=== PATIENT | female | born 1950 | race Caucasian/White ===

== ENCOUNTER 2017-08-31 09:47 | Outpatient (CLI) | payer MEDICARE, OTHER ==
[2016-08-19 12:39] VITALS: BP 144/85
[2017-08-31 10:11] LABS: BASOPHILS % 0.4 (0.0-1.5); EOSINOPHILS % 1.9 % (0.0-6.8); MEAN CORPUSCULAR HEMOGLOBIN 29.3 pg (28.0-34.0); MEAN CORPUSCULAR VOLUME 83.1 fl (80.0-100.0); MONOCYTES % 4.4 % (0.0-11.0); NEUTROPHILS # 2.8 # k/uL (1.4-7.7)
[2017-08-31 10:31] LABS: eGFR (African) > 60; eGFR (Non-African) > 60
== END 2017-08-31 10:00 ==
LOC: LAB 09:47
PROVIDERS: ATTEND Family Medicine
DX: I10 Essential (primary) hypertension (principal)
CPT/HCPCS: 36415; 80053; 85025

== ENCOUNTER 2017-09-22 17:35 | Emergency (ER) | payer MEDICARE, OTHER ==
[2017-09-22] MEDS ORDERED: KETOROLAC TROMETHAMINE 60 MG/2 ML VIAL ONE (18:00)
[2017-09-22] MEDS ORDERED: KETOROLAC TROMETHAMINE 60 MG/2 ML VIAL IM ONE (18:00)
[2017-09-22] MEDS ORDERED: ORPHENADRINE CITRATE 60 MG/2ML IM ONE (18:01)
[2017-09-22] MEDS ORDERED: ORPHENADRINE CITRATE 60 MG/2ML ONE (18:01)
--- NOTE | 2017-09-22 18:04 | ED Physician Documentation ---
Low Back Pain - HISTORIAN Historian: patient, child - HPI Stated Complaint: low back pain Chief Complaint: Low Back Pain/ Injury Additional Information: onset low back rated 8-10. onset pain about 1w ago now sig worse and ext mid lateral thigh w/pain sig progressive./ pt too excedrin etc w/o help. has chronic intermittent low back pain w djd disc ds and spurring History: history of chronic pain: Duration: worse (saw yesterday rec the excedrin but no help. pt also has sy uti w/freq burning) Recent Injury: No Context: denies: fall, near-fall, trauma Severity: moderate, severe Quality: burning, sharp, similar- prior back pain (only worse than usual) Associated Symptoms: problems urinating (burning freq). denies: fever, incontinence, nausea, vomiting Worsened By:: movement to LT flexion, cough, deep breaths, other (most movements ) - ROS CONST: denies: no problems CVS/RESP: none EYES/ENT: none MS/SKIN/LYMPH: none Neuro/Psych: none GI/: denies: abdominal pain - PAST HX Past History: arthritis, back injury, back pain, sciatica, intervert. disc disease, other (htn cellulitis djd dep edema) Surgeries/Procedures: cholecystectomy, hysterectomy, BTL Allergies/Adverse Reactions: Allergies Allergy/AdvReac Type Severity Reaction Status Date / Time Penicillins Allergy Unknown Verified 09/22/17 17:52 Home Medications: Ambulatory Orders Medication Instructions Recorded Aspirin/Acetaminophen/Caffeine 2 each PO Q6 PRN 09/22/17 [Excedrin Migraine Geltabs] - SOCIAL HX Smoking History: non-smoker Alcohol Use: none Drug Use: none - FAMILY HX Family History: no significant history - VITAL SIGNS Vital Signs: Vital Signs Temp Pulse Resp BP Pulse Ox 98.1 F 67 20 190/84 96 09/22/17 17:53 09/22/17 17:53 09/22/17 17:53 09/22/17 17:53 09/22/17 17:53 - REVIEWED ASSESSMENTS Nursing Assessment Reviewed: Yes Vitals Reviewed: Yes ED Results Lab/Radiology - Radiology Radiology Impressions: NO FRACTURE OR SIG NEW FINDING FROM HX - Orders Orders: ED Orders Category Date Time Status LUMBAR SPINE XR 2 OR 3 VIEWS [L SPINE 2 OR 3 VIEWS] [ Exams 09/22/17 Completed RAD] Stat Ketorolac Tromethamine [Toradol] Med 09/22/17 18:00 Discontinued 60 mg .ROUTE .STK-MED ONE Ketorolac Tromethamine [Toradol] Med 09/22/17 18:00 Discontinued 60 mg IM NOW ONE Orphenadrine Citrate [Norflex] Med 09/22/17 18:01 Discontinued 60 mg .ROUTE .STK-MED ONE Orphenadrine Citrate [Norflex] Med 09/22/17 18:01 Discontinued 60 mg IM NOW ONE Low Back Pain/Injury - Physical Exam General Appearance: moderate distress EENT: eye inspection normal Neck: non-tender, painless ROM Resp/CVS: chest non-tender, breath sounds nml, heart sounds nml, no resp. distress, lungs clear, reg. rate & rhythm Abdomen: non-tender Back: painless ROM Neuro/Psych: oriented x3, motor nml, sensation nml Skin: warm/dry, normal color. No: cyanosis, diaphoresis Extremities: edema, tenderness (lt t high) Discharge Clincal Impression: Sciatica, ACUTE SCIATICA W/ EXAB CHRONIC BACK PAIN Referrals: Nicola Acharya MD [Primary Care Provider] - 2 Days Disposition: 01 HOME, SELF-CARE Decision to Admit: NO Decision Time: 19:22
--- NOTE | 2017-09-22 18:57 | Diagnostic Imaging Report ---
ROSE MARTINEZ [facility] [address] [facility].[address] [address] Report Submission Date: Sep 22, 2017 6:47:53 PM LINE RUNNER Patient Study Name: ROSE SEGUNDO Date: Sep 22, 2017 6:30:20 PM LINE RUNNER Modality Type: CR Gender: F Description: SPINE : 50 Institution: [facility] Physician: ROSE MARTINEZ Examination: Plain film lumbar spine History: Back discomfort Findings: 4 views of the lumbar spine demonstrate normal height. No anterior compression. Osteophyte formation and disc space narrowing. Slight curvature to the left. No soft tissue abnormalities. Impression: Degenerative changes. No compression deformity. Electronically signed on Sep 22, 2017 6:47:53 PM LINE RUNNER by: Wiliam PÉREZ
[2017-09-22 19:39] VITALS: BP 149/75
== END 2017-09-22 19:20 | disposition home or self-care (01) ==
LOC: ED 17:35
DX: M54.30 Sciatica, unspecified side (principal); M54.9 Dorsalgia, unspecified
CPT/HCPCS: 72100; J1885; J2360; 96372; 99283

== ENCOUNTER 2017-09-28 16:11 | Emergency (ER) | payer MEDICARE, OTHER ==
--- NOTE | 2017-09-28 16:34 | ED Physician Documentation ---
General Adult - HISTORIAN Historian: patient - HPI Stated Complaint: left flank pain Chief Complaint: Flank Pain Onset: other (2 weeks all together ) Timing: still present, worse Severity: moderate Further Comments: yes (she states that last weekend she had the pain on her left hip and she presented to the ER shes states she was told it was siatica and she was treated with three meds. She reports early in the week she had increase in pain and she did see Dr Acharya who changed her meds and she sates the pain is only increasing. Sharp and cramping sensation on her left lower abdomen and left flank and down left buttock . No loss of control of bowel or bladder) Last known Well Code/Unknown Code: Unknown - ROS CONST: no problems GI/: abdominal pain. denies: problems urinating, vomiting, nausea, diarrhea MS/SKIN/LYMPH: none NEURO/PSYCH: denies: headache, fainting, dizziness - PAST HX Past History: other Other History: other Immunizations: referred to PCP - SOCIAL HX Smoking History: non-smoker Alcohol Use: none Drug Use: none - FAMILY HX Family History: Yes - VITAL SIGNS Vital Signs: Vital Signs Temp Pulse Resp BP Pulse Ox 97.4 F L 71 20 199/100 97 09/28/17 16:11 09/28/17 16:11 09/28/17 16:11 09/28/17 16:11 09/28/17 16:11 - REVIEWED ASSESSMENTS Nursing Assessment Reviewed: Yes Vitals Reviewed: Yes <Marcia Mcmanus - Last Filed: 09/28/17 18:26> - VITAL SIGNS Vital Signs: Vital Signs Temp Pulse Resp BP Pulse Ox 97.4 F L 71 20 199/100 97 09/28/17 16:11 09/28/17 16:11 09/28/17 16:11 09/28/17 16:11 09/28/17 16:11 <JAYDEN ATKINS - Last Filed: 09/28/17 19:12> - PAST HX Allergies/Adverse Reactions: Allergies Allergy/AdvReac Type Severity Reaction Status Date / Time Penicillins Allergy Unknown Verified 09/28/17 16:29 Home Medications: Ambulatory Orders Medication Instructions Recorded predniSONE [Deltasone] 20 mg PO BID 09/28/17 Progress - Progress Progress: Patient denies any pain at discharge. VS Stable. <JAYDEN ATKINS - Last Filed: 09/28/17 19:12> ED Results Lab/Radiology - Lab Results Lab Results: Lab Results 09/28/17 09/28/17 17:33 17:33 WBC 8.40 K/ul K/ul (4.00-12.00) RBC 5.25 M/ul H M/ul (3.90-5.20) Hgb 15.4 g/dL g/dL (12.0-16.0) Hct 43.6 % % (34.5-46.5) MCV 83.0 fl fl (80.0-100.0) MCH 29.4 pg pg (28.0-34.0) MCHC 35.4 g/dL g/dL (30.0-36.0) RDW 13.4 % % (11.3-14.3) Plt Count 263 K/mm3 K/mm3 (130-400) Neut % (Auto) 80.5 % H % (39.0-79.0) Lymph % (Auto) 13.3 % L % (16.0-50.0) [place] % (Auto) 4.4 % % (0.0-11.0) Eos % (Auto) 0.8 % % (0.0-6.8) Baso % (Auto) 0.1 (0.0-1.5) Neut # (Auto) 6.8 # k/uL # k/uL (1.4-7.7) Lymph # (Auto) 1.1 # k/uL # k/uL (0.6-4.0) [place] # (Auto) 0.4 # k/uL # k/uL (0.0-0.9) Eos # (Auto) 0.1 # k/uL # k/uL (0.0-0.6) Baso # (Auto) 0.0 # k/uL # k/uL (0.0-0.5) Reactive Lymphs % 0.9 % % (0.0-5.0) Reactive Lymphs # 0.1 # k/uL # k/uL (0.0-0.8) Sodium 137 mmol/L mmol/L (136-145) Potassium 3.2 mmol/L L mmol/L (3.5-5.1) Chloride 102 mmol/L mmol/L (98-107) Carbon Dioxide 25 mmol/L mmol/L (22-30) BUN 22 mg/dL H mg/dL (7-17) Creatinine 0.70 mg/dL mg/dL (0.52-1.04) Estimated Creat Clear 161 Est GFR ( Amer) > 60 (60 - ) Est GFR (Non-Af Amer) > 60 (60 - ) Glucose 134 mg/dL H mg/dL (74-106) Calcium 9.7 mg/dL mg/dL (8.4-10.2) Total Bilirubin 1.4 mg/dL H mg/dL (0.2-1.3) AST 28 U/L U/L (15-46) ALT 41 U/L U/L (13-69) Alkaline Phosphatase 93 U/L U/L (38-126) Total Protein 7.7 g/dL g/dL (6.3-8.2) Albumin 4.0 g/dL g/dL (3.5-5.0) - Orders Orders: ED Orders Category Date Time Status Place IV Lock 1T Care 09/28/17 16:57 Active CBC/PLATELET/DIFF Routine Lab 09/28/17 17:33 Completed CMP [CMP] Routine Lab 09/28/17 17:33 Completed UA W/MICRO IF INDICATED Routine Lab 09/28/17 16:50 Ordered 0.9 % Sodium Chloride [Normal Saline] 1,000 ml Med 09/28/17 16:58 Discontinued IV Q1H Butorphanol Tartrate [Stadol] Med 09/28/17 17:11 Discontinued 2 mg .ROUTE .STK-MED ONE Butorphanol Tartrate [Stadol] Med 09/28/17 17:09 Discontinued 2 mg IV NOW ONE Potassium Chloride [Klor-Con M20] Med 09/28/17 18:08 Discontinued 20 meq PO NOW ONE <WILBERTJAYDEN C - Last Filed: 09/28/17 19:12> General Adult Physical Exam - PHYSICAL EXAM GENERAL APPEARANCE: mild distress EENT: eye inspection normal NECK: normal inspection RESPIRATORY: no resp distress, chest non-tender, breath sounds normal CVS: reg rate & rhythm, heart sounds normal, equal pulses, no murmur ABDOMEN: soft, no organomegaly, normal bowel sounds. No: rebound BACK: normal inspection, no CVA tenderness SKIN: warm/dry, normal color EXTREMITIES: non-tender, normal range of motion, no evidence of injury, no edema , other (mild pain to palpation left lateral lower back . Normal ROM of left hip and leg ) NEURO: oriented X3, CN's nml as tested, motor nml <Marcia Mcmanus - Last Filed: 09/28/17 18:26> Discharge Decision to Admit: NO Date of Decison to Admit: 09/28/17 Decision Time: 18:27 <Marcia Mcmanus - Last Filed: 09/28/17 18:26> <JAYDEN ATKINS - Last Filed: 09/28/17 19:12> Clincal Impression: Acute back pain with sciatica Qualifiers: Laterality: unspecified laterality Qualified Code(s): M54.40 - Lumbago with sciatica, unspecified side Referrals: Nicola Acharya MD [Primary Care Provider] - 2 Days Condition: Stable Disposition: 01 HOME, SELF-CARE
[2017-09-28] MEDS ORDERED: 0.9 % SODIUM CHLORIDE 1,000 ML IV ONE (16:58)
[2017-09-28] MEDS ORDERED: BUTORPHANOL TARTRATE 2 MG/ML VIAL IV ONE (17:09)
[2017-09-28] MEDS ORDERED: BUTORPHANOL TARTRATE 2 MG/ML VIAL ONE (17:11)
[2017-09-28 17:39] LABS: BASOPHILS % 0.1 (0.0-1.5); EOSINOPHILS % 0.8 % (0.0-6.8); MEAN CORPUSCULAR HEMOGLOBIN 29.4 pg (28.0-34.0); MONOCYTES % 4.4 % (0.0-11.0); NEUTROPHILS # 6.8 # k/uL (1.4-7.7)
[2017-09-28 17:56] LABS: eGFR (African) > 60; eGFR (Non-African) > 60
[2017-09-28] MEDS ORDERED: POTASSIUM CHLORIDE 20 MEQ TABLET.ER PO ONE (18:08)
[2017-09-28 21:53] VITALS: BP 161/82
== END 2017-09-28 19:03 | disposition home or self-care (01) ==
LOC: ED 16:11
DX: M54.40 Lumbago with sciatica, unspecified side (principal)
CPT/HCPCS: 80053; 85025; A9270; J0595; J7030; 96361; 96374; 99283; S1016

== ENCOUNTER 2017-10-01 10:30 | Emergency (ER) | payer MEDICARE, OTHER ==
[2017-10-01] MEDS ORDERED: KETOROLAC TROMETHAMINE 60 MG/2 ML VIAL IM ONE ×2 (11:20→11:22)
--- NOTE | 2017-10-01 11:41 | ED Physician Documentation ---
Low Back Pain - HISTORIAN Historian: patient, friend - [facility] Stated Complaint: back pain Chief Complaint: Low Back Pain/ Injury Additional Information: pt here 6 days ago rec norflex pred ultram-helped - later saw DR VILLASEÑOR rec medws=no help - History: history of chronic pain:, back pain Onset: days ago (3-4 WEEKS INTERMITTENT) Duration: continues in ED Recent Injury: No Severity: moderate Quality: burning, dull, other (RADIATES LT BUTTOCKS AND LT THIGH TO KNEE) Associated Symptoms: denies: fever, chills Worsened By:: movement to RT flexion, movement to LT flexion - ROS CONST: no problems CVS/RESP: denies: chest pain, shortness of breath EYES/ENT: denies: problems with vision, sore throat MS/SKIN/LYMPH: none Neuro/Psych: none - PAST HX Past History: arthritis, back pain Surgeries/Procedures: cholecystectomy Allergies/Adverse Reactions: Allergies Allergy/AdvReac Type Severity Reaction Status Date / Time Penicillins Allergy Unknown Verified 10/01/17 11:14 Home Medications: Ambulatory Orders Medication Instructions Recorded predniSONE [Deltasone] 20 mg PO BID 09/28/17 Orphenadrine Citrate [Norflex] 100 mg PO BID #30 tab 10/01/17 Prednisone 10 mg PO TID #27 tablet 10/01/17 - SOCIAL HX Smoking History: non-smoker Alcohol Use: none Drug Use: none - FAMILY HX Family History: no significant history - VITAL SIGNS Vital Signs: Vital Signs Temp Pulse Resp BP Pulse Ox 98.0 F 109 H 16 109/79 95 10/01/17 10:56 10/01/17 10:56 10/01/17 10:56 10/01/17 10:56 10/01/17 10:56 - REVIEWED ASSESSMENTS Nursing Assessment Reviewed: Yes Vitals Reviewed: Yes ED Results Lab/Radiology - Orders Orders: ED Orders Category Date Time Status CT L-SPINE W/O CONTRAST Stat Exams 10/01/[address] LUMBAR SPINE W/O [CT L-SPINE W/O CONTRAST] Stat Exams 10/01/17 Ordered Ketorolac Tromethamine [Toradol] Med 10/01/17 11:20 Discontinued 60 mg IM NOW ONE Ketorolac Tromethamine [Toradol] Med 10/01/17 11:22 Discontinued 60 mg IM NOW ONE Low Back Pain/Injury - Physical Exam General Appearance: moderate distress EENT: eye inspection normal Neck: non-tender, painless ROM, trachea midline, vertebral point-tendernes (LOW BACK AND POS SLR BILAT BOTH RAD TO LT HIP BACK LEG) Resp/CVS: chest non-tender, breath sounds nml, heart sounds nml, lungs clear, reg. rate & rhythm Abdomen: non-tender Back: muscle spasm Straight Leg Raising: Positive Left, Positive Right Neuro/Psych: oriented x3, motor nml, sensation nml, mood/affect nml Skin: warm/dry, normal color. No: cyanosis, diaphoresis, jaundice Extremities: non-tender, normal range of motion Discharge Clincal Impression: ACUTE EXABERATION CHRONIC LOW BACK PAIN, Sciatica, SPINAL STENOSIS Prescriptions: Orphenadrine Citrate [Norflex] 100 mg PO BID #30 tab Prednisone 10 mg PO TID #27 tablet Referrals: Nicola Villaseñor MD [Primary Care Provider] - 2 Days Comments: see DR GUZMAN soon for f/u care Condition: Fair Disposition: 01 HOME, SELF-CARE Decision to Admit: NO Decision Time: 12:56
[2017-10-01 13:04] VITALS: BP 112/80
--- NOTE | 2017-10-01 13:58 | Diagnostic Imaging Report ---
ROSE MARTINEZ [facility] [address] [facility] [address] [place], [place]. [address] Report Submission Date: Oct 01, 2017 12:17:41 PM FOOD PHOTOGRAPHER Patient Study Name: ROSE SEGUNDO Date: Oct 01, 2017 11:30:49 AM FOOD PHOTOGRAPHER Modality Type: CT\SR Gender: F Description: CT L-SPINE W/O CONTRAS : 50 Institution: [facility] Physician: ROSE MARTINEZ Examination: CT lumbar spine History: Chronic low back discomfort. Comparison exams: Plain film dated CT September 2017. Technique: CT lumbar spine axial imaging with sagittal and coronal reconstruction Findings: Sagittal reconstruction demonstrates normal height and alignment the lumbar vertebral bodies. No anterior compression deformity. Anterior and lateral osteophytes. Disc space narrowing L3/L4 and L4/L5. Coronal reconstruction does not demonstrate locked or perched facets. Axial imaging obtained from T12 through the sacrum Lamina and pedicles are intact. No ossific density within the central canal. Scattered facet degenerative changes. Narrowing of the central canal and neural foramen at L3/L4, L4/L5 and L5/S1. No prevertebral soft tissue abnormality. Impression: Lumbar degenerative changes: most pronounced from L3/L4 through L5/ S1 with presumed central canal and neural foraminal nerve/cord stenosis. No evidence for vertebral body compression fracture. If possible, consider obtaining MRI lumbar spine to better evaluate degree of cord and nerve impingement. Electronically signed on Oct 01, 2017 12:17:41 PM FOOD PHOTOGRAPHER by: Wiliam PÉREZ
== END 2017-10-01 13:00 | disposition home or self-care (01) ==
LOC: ED 10:30
DX: M54.40 Lumbago with sciatica, unspecified side (principal); M48.00 Spinal stenosis, site unspecified
CPT/HCPCS: 72131; J1885; 96372; 99283

== ENCOUNTER 2018-03-28 08:45 | Outpatient (CLI) | payer MEDICARE, OTHER ==
[2018-03-28 09:12] LABS: BASOPHILS % 0.4 (0.0-1.5); EOSINOPHILS % 2.1 % (0.0-6.8); MEAN CORPUSCULAR HEMOGLOBIN 27.9 pg (28.0-34.0); MEAN CORPUSCULAR VOLUME 83.6 fl (80.0-100.0); MONOCYTES % 4.3 % (0.0-11.0); NEUTROPHILS # 2.4 # k/uL (1.4-7.7)
[2018-03-28 09:32] LABS: eGFR (African) > 60; eGFR (Non-African) > 60
== END 2018-03-28 12:15 ==
LOC: LAB 08:45
PROVIDERS: ATTEND Family Medicine
DX: I10 Essential (primary) hypertension (principal); E78.00 Pure hypercholesterolemia, unspecified
CPT/HCPCS: 36415; 80053; 80061; 85025

== ENCOUNTER 2018-11-21 10:35 | Emergency (ER) | payer MEDICARE, OTHER ==
--- NOTE | 2018-11-21 10:41 | ED Physician Documentation ---
General Adult - HISTORIAN Historian: patient - HPI Stated Complaint: mid back through chest x 3 days Chief Complaint: Upper Back Injury/ Pain Onset: days ago (3) Timing: still present Severity: moderate Further Comments: yes (She reports pain in mid to right back that travels through her chest x 3 days. "I fall a lot this is not new but I am not sure I h urt any thing" Her pain is 6/10. She has not tried any OTC meds for pain. She has no change with positions. Denies any nausea or vomiting no radiation of pain. She has not taken her b/p med at this time. She has a history of back pain in the past.) Last known Well Code/Unknown Code: Unknown - ROS CONST: no problems CVS/RESP: chest pain. denies: shortness of breath, cough GI/: denies: vomiting, nausea, diarrhea MS/SKIN/LYMPH: none NEURO/PSYCH: denies: headache, fainting, dizziness - PAST HX Past History: hypertension Other History: none Immunizations: UTD Allergies/Adverse Reactions: Allergies Allergy/AdvReac Type Severity Reaction Status Date / Time Penicillins Allergy Unknown Verified 11/21/18 11:10 - SOCIAL HX Smoking History: non-smoker Alcohol Use: none Drug Use: none - FAMILY HX Family History: No - VITAL SIGNS Vital Signs: Vital Signs Temp Pulse Resp BP Pulse Ox 112/80 10/01/17 13:02 - REVIEWED ASSESSMENTS Nursing Assessment Reviewed: Yes Vitals Reviewed: Yes Progress - Progress Progress: 1200: results and plan with current findings discussed she is aware DG ED Results Lab/Radiology - Radiology Radiology Impressions: Examination: PA and lateral chest. History: Evaluate lung laureano. Comparison exam: None provided. Findings: PA and lateral views of the chest demonstrates a normal cardiac and mediastinal silhouette. Mildly tortuous aorta. Chronic interstitial changes. No focal infiltrate. No blunting of the costophrenic margins. Osseous structures are appropriate for age. Impression: No acute pulmonary process. Electronically signed on Nov 21, 2018 12:03:55 PM LAWN CARETAKER by: Wiliam Fierro Examination: Plain film thoracic spine History: T-SPINE, MID BACK PAIN X2 DAYS, NO KNOWN INJURY Findings: 3 views of the thoracic spine demonstrate normal height. No anterior compression. Scattered degenerative spurring. No soft tissue abnormalities. Impression: Degenerative spurring. No acute osseous abnormality. Electronically signed on Nov 21, 2018 12:05:00 PM LAWN CARETAKER by: Wiliam Fierro General Adult Physical Exam - PHYSICAL EXAM GENERAL APPEARANCE: no distress EENT: eye inspection normal, no signs of dehydration NECK: normal inspection RESPIRATORY: no resp distress, chest non-tender, breath sounds normal CVS: reg rate & rhythm, heart sounds normal, equal pulses, no murmur ABDOMEN: soft, normal bowel sounds, no distension, non-tender BACK: normal inspection, other (mild tenderness with palpation mid t spine. No obvious injury signs ) SKIN: warm/dry, normal color EXTREMITIES: non-tender, normal range of motion, no evidence of injury, no edema NEURO: oriented X3 Discharge Clincal Impression: Back pain Qualifiers: Back pain location: thoracic back pain Chronicity: unspecified Back pain laterality: right Qualified Code(s): M54.6 - Pain in thoracic spine Referrals: Nicola Acharya MD [Primary Care Provider] - 2 Days Comments: 1. Continue with OTC meds as needed for pain 2. TAKE YOUR B/P med 3. Stretch back 4. Ice or heat as needed for pain 5. Keep appt with PCP Sunday 6. Return to ER for any concerns Condition: Stable Disposition: 01 HOME, SELF-CARE Decision to Admit: NO Date of Decison to Admit: 11/21/18 Decision Time: 12:10
[2018-11-21] MEDS ORDERED: ASPIRIN 81 MG CHEW TAB ONE (10:50)
[2018-11-21] MEDS ORDERED: ASPIRIN 81 MG CHEW TAB PO ONE (11:01)
[2018-11-21 11:25] LABS: BASOPHILS % 0.3 (0.0-1.5); EOSINOPHILS % 1.6 % (0.0-6.8); MEAN CORPUSCULAR HEMOGLOBIN 28.4 pg (28.0-34.0); MONOCYTES % 6.5 % (0.0-11.0); NEUTROPHILS # 2.7 # k/uL (1.4-7.7)
[2018-11-21 11:32] LABS: eGFR (Non-African) > 60
[2018-11-21] MEDS ORDERED: KETOROLAC TROMETHAMINE 30 MG/1ML VIAL ONE (11:56)
[2018-11-21] MEDS ORDERED: KETOROLAC TROMETHAMINE 30 MG/1ML VIAL IVP ONE (11:56)
[2018-11-21 12:25] VITALS: BP 176/98
--- NOTE | 2018-11-21 23:00 | Diagnostic Imaging Report ---
DENNIS SANTIAGO [facility] [address] [facility] [address] [place], [place]. [address] Report Submission Date: Nov 21, 2018 12:03:55 PM SUSTAIN ENGINEER Patient Study Name: ROSE SEGUNDO Date: Nov 21, 2018 11:10:05 AM SUSTAIN ENGINEER Modality Type: DX Gender: F Description: CHEST : 50 Institution: [facility] Physician: DENNIS SANTIAGO Examination: PA and lateral chest. History: Evaluate lung laureano. Comparison exam: None provided. Findings: PA and lateral views of the chest demonstrates a normal cardiac and mediastinal silhouette. Mildly tortuous aorta. Chronic interstitial changes. No focal infiltrate. No blunting of the costophrenic margins. Osseous structures are appropriate for age. Impression: No acute pulmonary process. Electronically signed on Nov 21, 2018 12:03:55 PM SUSTAIN ENGINEER by: Wiliam PÉREZ
--- NOTE | 2018-11-21 23:00 | Diagnostic Imaging Report ---
DENNIS SANTIAGO [facility] [address] [facility] [address] [address] Report Submission Date: Nov 21, 2018 12:05:00 PM PATIENT RESOURCE COORDINATOR Patient Study Name: ROSE SEGUNDO Date: Nov 21, 2018 11:20:36 AM PATIENT RESOURCE COORDINATOR Modality Type: DX Gender: F Description: SPINE : 50 Institution: [facility] Physician: DENNIS SANTIAGO Examination: Plain film thoracic spine History: T-SPINE, MID BACK PAIN X2 DAYS, NO KNOWN INJURY Findings: 3 views of the thoracic spine demonstrate normal height. No anterior compression. Scattered degenerative spurring. No soft tissue abnormalities. Impression: Degenerative spurring. No acute osseous abnormality. Electronically signed on Nov 21, 2018 12:05:00 PM PATIENT RESOURCE COORDINATOR by: Wiliam PÉREZ
== END 2018-11-21 12:23 | disposition home or self-care (01) ==
LOC: ED 10:35
DX: M54.6 Pain in thoracic spine (principal)
CPT/HCPCS: 36415; 71046; 72072; 80053; 84484; 85025; 93005; 96374; 99283; 99285; J1885; S1016